=== PATIENT | female | born 1990 | race Caucasian/White ===

== ENCOUNTER 2017-11-22 23:50 | Observation (INO) | payer SELFPAY ==
[2017-11-23 01:00] LABS: CHLORIDE,CL 99 mmol/L (98-107); SODIUM,NA 134 mmol/L (136-145)
[2017-11-23] MEDS ORDERED: Sodium Chloride 0.9% 1,000 ML IV ONE ×2 (01:00→02:03)
[2017-11-23] MEDS ORDERED: Ketorolac 30 MG/ML SDV IVPUSH ONE (01:00)
--- NOTE | 2017-11-23 01:14 | EDM.PDOC ---
ED HPI GENERAL MEDICAL PROBLEM - General Chief Complaint: Flank Pain Stated Complaint: POSSIBLE KIDNEY INFECTION Time Seen by Provider: 11/23/17 00:00 Source of Information: Reports: Patient History Limitations: Reports: No Limitations - History of Present Illness INITIAL COMMENTS - FREE TEXT/NARRATIVE: HISTORY AND PHYSICAL: History of present illness: 27-year-old female presenting emergency department chief complaint of fever, chills, right flank pain 4 days with past medical history of pyelonephritis. Patient states that roughly 4 days ago she began having some generalized body aches. This is progressed to the point where 2 days ago she began to feel more feverish and have some mild right flank pain. States that she did have a kidney infection approximately 2 months ago the wire hospitalization and IV antibiotics. This was all in [place] where she is initially from. She just moved to [place] approximately 2 days ago. Patient reports no associated nausea, vomiting, diarrhea, abdominal pain, dysuria, or hematuria. States that she's had some mild right flank pain as mentioned above she had similar to her last acute kidney infection. She denies any history of kidney stones. Patient has a primary care provider in [place] and has never seen a urologist but states she's had multiple kidney infections in the past. On initial exam patient is nontoxic-appearing. She does have mild right CVA tenderness as well as suprapubic tenderness. Review of systems: As per history of present illness and below otherwise all systems reviewed and negative. Past medical history: As per history of present illness and as reviewed below otherwise noncontributory. Surgical history: As per history of present illness and as reviewed below otherwise noncontributory. Social history: No reported history of drug or alcohol abuse. Family history: As per history of present illness and as reviewed below otherwise noncontributory. Physical exam: HEENT: Atraumatic, normocephalic, pupils reactive, negative for conjunctival pallor or scleral icterus, mucous membranes moist, throat clear, neck supple, nontender, trachea midline. Lungs: Clear to auscultation, breath sounds equal bilaterally, chest nontender. Heart: S1S2, regular, negative for clicks, rubs, or JVD. Abdomen: Soft, nondistended, Mild suprapubic tenderness. Negative for masses or hepatosplenomegaly. Right costovertebral tenderness. Pelvis: Stable nontender. Genitourinary: Deferred. Rectal: Deferred. Extremities: Atraumatic, negative for cords or calf pain. Neurovascular unremarkable. Neuro: Awake, alert, oriented. Cranial nerves II through XII unremarkable. Cerebellum unremarkable. Motor and sensory unremarkable throughout. Exam nonfocal. Diagnostics: CBC, CMP, UA/UC, blood culturex2 Therapeutics: 1 L normal saline 1, ertapenem 1 g IV 1, 30 mg Toradol IV 1 Impression: Acute cystitis Suspect pyelonephritis Plan: CBC, CMP were unremarkable. Patient did have positive UA for urinary tract infection and secondary to symptoms most likely acute pyelonephritis. Secondary to her recent hospitalization less than 2 months ago I did start her on ertapenem due to her increased risk of multiple drug resistant bacteria. In addition the patient did have an episode of hypotension with systolic and 89. This was relieved with IV fluid hydration. Secondary all above I did call hospitalist Dr. Singleton who accepted patient for admission observation for pyelonephritis. Blood cultures as well as urine culture were taken before abx. Definitive disposition and diagnosis as appropriate pending reevaluation and review of above. right flank Pain Score (Numeric/FACES): 10 - Related Data Allergies Allergy/AdvReac Type Severity Reaction Status Date / Time ciprofloxacin Allergy Hives Verified 11/23/17 00:08 nitrofurantoin Allergy Hives Verified 11/23/17 00:08 [From Macrobid] sulfamethoxazole Allergy Hives Verified 11/23/17 00:08 [From Bactrim] trimethoprim [From Bactrim] Allergy Hives Verified 11/23/17 00:08 Home Meds: Home Meds . [No Known Home Meds] 11/22/17 [History] Past Medical History Genitourinary History: Reports: Other (See Below) Other Genitourinary History: chronic kidney infection Social & Family History - Family History Family Medical History: Noncontributory - Tobacco Use Smoking Status *Q: Never Smoker - Recreational Drug Use Recreational Drug Use: No ED ROS GENERAL - Review of Systems Review Of Systems: ROS reveals no pertinent complaints other than HPI. ED EXAM, GENERAL - Physical Exam Exam: See Below Course - Vital Signs Last Recorded V/S: Last Vital Signs Temp 98.6 F 11/23/17 01:41 Pulse 97 11/23/17 01:41 Resp 18 11/23/17 01:41 BP 109/70 11/23/17 01:41 Pulse Ox 100 11/23/17 01:41 - Orders/Labs/Meds Orders: Active Orders 24 hr Category Date Time Status Admission Status [Patient Status] [ADT] Stat ADT 11/23/17 01:53 Ordered CULTURE BLOOD [BC] Stat Lab 11/23/17 01:46 Ordered CULTURE BLOOD [BC] Stat Lab 11/23/17 01:47 Ordered CULTURE BLOOD [BC] Stat Lab 11/23/17 01:47 Ordered CULTURE URINE [RM] Stat Lab 11/23/17 00:00 Ordered HCG QUALITATIVE,URINE [URCHEM] Stat Lab 11/23/17 00:00 Ordered UA W/MICROSCOPIC [URIN] Stat Lab 11/23/17 00:00 Ordered Ertapenem [INVanz] 1 gm Med 11/23/17 01:41 Ordered Sodium Chloride 0.9% [Normal Saline] 50 ml IV ONETIME Sodium Chloride 0.9% [Normal Saline] 1,000 ml Med 11/23/17 01:00 Active IV STAT Blood Culture x2 Reflex Set [OM.PC] Stat Oth 11/23/17 01:47 Ordered Medication Orders Sodium Chloride (Normal Saline) 1,000 mls @ 999 mls/hr IV STAT ONE Stop: 11/23/17 02:00 Last Admin: 11/23/17 01:09 Dose: 999 mls/hr Ertapenem 1 gm/ Sodium (Chloride) 50 mls @ 100 mls/hr IV ONETIME ONE Stop: 11/23/17 02:10 Labs: Laboratory Tests 11/23/17 11/23/17 11/23/17 Range/Units 00:00 00:00 00:03 WBC (4.0-11.0) K/uL RBC (4.30-5.90) M/uL Hgb (12.0-16.0) g/dL Hct (36.0-46.0) % MCV (80.0-98.0) fL MCH (27.0-32.0) pg MCHC (31.0-37.0) g/dL RDW Std Deviation (28.0-62.0) fl RDW Coeff of Vaibhav (11.0-15.0) % Plt Count (150-400) K/uL MPV (7.40-12.00) fL Neut % (Auto) (48.0-80.0) % Lymph % (Auto) (16.0-40.0) % [place] % (Auto) (0.0-15.0) % Eos % (Auto) (0.0-7.0) % Baso % (Auto) (0.0-1.5) % Neut # (Auto) (1.4-5.7) K/uL Lymph # (Auto) (0.6-2.4) K/uL [place] # (Auto) (0.0-0.8) K/uL Eos # (Auto) (0.0-0.7) K/uL Baso # (Auto) (0.0-0.1) K/uL Nucleated RBC % /100WBC Nucleated RBCs # K/uL Sodium 134 L (136-145) mmol/L Potassium 3.7 (3.5-5.1) mmol/L Chloride 99 (98-107) mmol/L Carbon Dioxide 26.2 (21.0-32.0) mmol/L BUN 10 (7.0-18.0) mg/dL Creatinine 0.9 (0.6-1.0) mg/dL Est Cr Clr Drug Dosing 74.92 mL/min Estimated GFR (MDRD) > 60.0 ml/min Glucose 132 H (74-106) mg/dL Calcium 8.8 (8.5-10.1) mg/dL Total Bilirubin 0.8 (0.2-1.0) mg/dL AST 40 H (15-37) IU/L ALT 42 (14-63) IU/L Alkaline Phosphatase 83 (46-116) U/L Total Protein 7.4 (6.4-8.2) g/dL Albumin 3.2 L (3.4-5.0) g/dL Globulin 4.2 H (2.0-3.5) g/dL Albumin/Globulin Ratio 0.8 L (1.3-2.8) Urine Color YELLOW Urine Appearance SLT CLOUDY Urine pH 6.0 (5.0-8.0) Ur Specific [place] 1.020 (1.001-1.035) Urine Protein 30 (NEGATIVE) mg/dL Urine Glucose (UA) NEGATIVE (NEGATIVE) mg/dL Urine Ketones NEGATIVE (NEGATIVE) mg/dL Urine Occult Blood SMALL H (NEGATIVE) Urine Nitrite POSITIVE H (NEGATIVE) Urine Bilirubin NEGATIVE (NEGATIVE) Urine Urobilinogen 0.2 (<2.0) EU/dL Ur Leukocyte Esterase MODERATE (NEGATIVE) Urine RBC 1-2 (0-2/HPF) Urine WBC 12-17 (0-5/HPF) Ur Epithelial Cells OCCASIONAL (NONE-FEW) Urine Bacteria 3+ H (NEGATIVE) Urine Mucus LIGHT (NONE-MOD) Urine HCG, Qual NEGATIVE (NEGATIVE) 11/23/17 Range/Units 00:30 WBC 8.17 (4.0-11.0) K/uL RBC 4.17 L (4.30-5.90) M/uL Hgb 14.1 (12.0-16.0) g/dL Hct 40.2 (36.0-46.0) % MCV 96.4 (80.0-98.0) fL MCH 33.8 H (27.0-32.0) pg MCHC 35.1 (31.0-37.0) g/dL RDW Std Deviation 43.8 (28.0-62.0) fl RDW Coeff of Vaibhav 13 (11.0-15.0) % Plt Count 185 (150-400) K/uL MPV 9.10 (7.40-12.00) fL Neut % (Auto) 66.6 (48.0-80.0) % Lymph % (Auto) 20.1 (16.0-40.0) % [place] % (Auto) 13.2 (0.0-15.0) % Eos % (Auto) 0.0 (0.0-7.0) % Baso % (Auto) 0.1 (0.0-1.5) % Neut # (Auto) 5.4 (1.4-5.7) K/uL Lymph # (Auto) 1.6 (0.6-2.4) K/uL [place] # (Auto) 1.1 H (0.0-0.8) K/uL Eos # (Auto) 0.0 (0.0-0.7) K/uL Baso # (Auto) 0.0 (0.0-0.1) K/uL Nucleated RBC % 0.0 /100WBC Nucleated RBCs # 0 K/uL Sodium (136-145) mmol/L Potassium (3.5-5.1) mmol/L Chloride (98-107) mmol/L Carbon Dioxide (21.0-32.0) mmol/L BUN (7.0-18.0) mg/dL Creatinine (0.6-1.0) mg/dL Est Cr Clr Drug Dosing mL/min Estimated GFR (MDRD) ml/min Glucose (74-106) mg/dL Calcium (8.5-10.1) mg/dL Total Bilirubin (0.2-1.0) mg/dL AST (15-37) IU/L ALT (14-63) IU/L Alkaline Phosphatase (46-116) U/L Total Protein (6.4-8.2) g/dL Albumin (3.4-5.0) g/dL Globulin (2.0-3.5) g/dL Albumin/Globulin Ratio (1.3-2.8) Urine Color Urine Appearance Urine pH (5.0-8.0) Ur Specific [place] (1.001-1.035) Urine Protein (NEGATIVE) mg/dL Urine Glucose (UA) (NEGATIVE) mg/dL Urine Ketones (NEGATIVE) mg/dL Urine Occult Blood (NEGATIVE) Urine Nitrite (NEGATIVE) Urine Bilirubin (NEGATIVE) Urine Urobilinogen (<2.0) EU/dL Ur Leukocyte Esterase (NEGATIVE) Urine RBC (0-2/HPF) Urine WBC (0-5/HPF) Ur Epithelial Cells (NONE-FEW) Urine Bacteria (NEGATIVE) Urine Mucus (NONE-MOD) Urine HCG, Qual (NEGATIVE) Meds: Medications Generic Name Dose Route Start Last Admin Trade Name Juana PRN Reason Stop Dose Admin Sodium Chloride 1,000 mls @ 999 mls/hr 11/23/17 01:00 11/23/17 01:09 Normal Saline IV 11/23/17 02:00 999 mls/hr STAT ONE Administration Ertapenem 1 gm/ Sodium 50 mls @ 100 mls/hr 11/23/17 01:41 Chloride IV 11/23/17 02:10 ONETIME ONE Discontinued Medications Generic Name Dose Route Start Last Admin Trade Name Juana PRN Reason Stop Dose Admin Ketorolac Tromethamine 30 mg 11/23/17 01:00 11/23/17 01:09 Toradol IVPUSH 11/23/17 01:01 30 mg ONETIME ONE Administration Morphine Sulfate 2 mg 11/23/17 01:26 11/23/17 01:52 Morphine IVPUSH 11/23/17 01:27 Not Given ONETIME ONE Departure - Departure Time of Disposition: 01:57 Disposition: Admitted As Inpatient 67 Condition: Fair Clinical Impression: Pyelonephritis, UTI, Urinary tract infectious disease - Discharge Information Referrals: PCP,None [Primary Care Provider] - Forms: ED Department Discharge - My Orders Last 24 Hours: My Active Orders 11/23/17 00:00 CULTURE URINE [RM] Stat HCG QUALITATIVE,URINE [URCHEM] Stat UA W/MICROSCOPIC [URIN] Stat 11/23/17 01:00 Sodium Chloride 0.9% [Normal Saline] 1,000 ml IV STAT 11/23/17 01:41 Ertapenem [INVanz] 1 gm Sodium Chloride 0.9% [Normal Saline] 50 ml IV ONETIME 11/23/17 01:46 CULTURE BLOOD [BC] Stat 11/23/17 01:47 CULTURE BLOOD [BC] Stat CULTURE BLOOD [BC] Stat Blood Culture x2 Reflex Set [OM.PC] Stat 11/23/17 01:53 Admission Status [Patient Status] [ADT] Stat - Assessment/Plan Last 24 Hours: My Active Orders 11/23/17 00:00 CULTURE URINE [RM] Stat HCG QUALITATIVE,URINE [URCHEM] Stat UA W/MICROSCOPIC [URIN] Stat 11/23/17 01:00 Sodium Chloride 0.9% [Normal Saline] 1,000 ml IV STAT 11/23/17 01:41 Ertapenem [INVanz] 1 gm Sodium Chloride 0.9% [Normal Saline] 50 ml IV ONETIME 11/23/17 01:46 CULTURE BLOOD [BC] Stat 11/23/17 01:47 CULTURE BLOOD [BC] Stat CULTURE BLOOD [BC] Stat Blood Culture x2 Reflex Set [OM.PC] Stat 11/23/17 01:53 Admission Status [Patient Status] [ADT] Stat
[2017-11-23] MEDS ORDERED: cefTRIAXone 1 GM in Premix Bag 1 BAG IV ONE (01:31)
[2017-11-23] MEDS: Morphine 2 MG/ML Syringe IVPUSH ONE ×2 (01:32→01:52)
[2017-11-23] MEDS ORDERED: Ertapenem 1 GM in Sodium Chloride 0.9% 50 ML IV ONE (01:41)
[2017-11-23] MEDS ORDERED: Enoxaparin 40 MG/0.4 ML Syringe SUBCUT SCH (03:00)
[2017-11-23] MEDS: Sodium Chloride 0.9% 1,000 ML IV SCH ×3 (03:00→20:02)
[2017-11-23] MEDS: Acetaminophen/oxyCODONE 325-5 MG Tab PO PRN ×5 (03:25→22:29)
[2017-11-23 06:35] LABS: CHLORIDE,CL 105 mmol/L (98-107); SODIUM,NA 136 mmol/L (136-145)
[2017-11-23] MEDS: Acetaminophen 325 MG Tab PO PRN (12:17)
[2017-11-23] MEDS ORDERED: LORazepam 2 MG/ML SDV IVPUSH PRN (13:13)
[2017-11-23] MEDS ORDERED: Magnesium Sulfate/Water 2 GM in Premix Bag 1 BAG IV ONE (13:17)
[2017-11-23] MEDS: Folic Acid/Vitamin B Complex With C Cap PO SCH (14:51)
--- NOTE | 2017-11-23 15:36 | US ---
EXAMINATION: Renal ultrasound HISTORY: Pyelonephritis COMPARISON: None TECHNIQUE: Grayscale and color Doppler imaging obtained of the kidneys and bladder. FINDINGS: The right kidney measures at least 9.9 cm and the left kidney measures at least 10.9 cm brittany e-to-pole without evidence of hydronephrosis. No renal mass or perinephric fluid collection. Normal c olor Doppler flow bilaterally. The adjacent liver appears mildly echogenic. The urinary bladder is no rmal with a minimal post void residual. IMPRESSION: 1. Unremarkable renal ultrasound. 2. Probable fatty infiltration of the liver.
--- NOTE | 2017-11-23 20:53 | PCM.HP ---
H&P History of Present Illness - General Date of Service: 11/23/17 Admit Problem/Dx: Admission Diagnosis/Problem Admission Diagnosis/Problem Pyelonephritis Source of Information: Patient - History of Present Illness Initial Comments - Free Text/Narative: Patient 27 years old female presented to hospital because of fever to 101.5F body aches , cold sweats ,increase in urinary frequency and no dysuria .Her symptoms started 2 days ago and patient says she used to go to restroom every hour .She has history of frequent urinary tract infection since age 13. She states she had pyelonephroitis 6 times since age 19. Patient drinks alcohol heavily for the past 1 1/2 year ., 1 L of Vodka a day and her last drink was on Sunday, 2 days ago. She states she never stopped drinking alcohol she also is using my methamphetamines.Has pain in the right flank. Symptom Onset Date: 11/21/17 Duration of Symptoms: Reports: Day(s): Location: Reports: Abdomen Quality: Reports: Pressure right flank Pain Score (Numeric/FACES): 2 - Related Data Allergies/Adverse Reactions: Allergies Allergy/AdvReac Type Severity Reaction Status Date / Time ciprofloxacin Allergy Hives Verified 11/23/17 00:08 nitrofurantoin Allergy Hives Verified 11/23/17 00:08 [From Macrobid] sulfamethoxazole Allergy Hives Verified 11/23/17 00:08 [From Bactrim] trimethoprim [From Bactrim] Allergy Hives Verified 11/23/17 00:08 Home Medications: Home Meds . [No Known Home Meds] 11/22/17 [History] Past Medical History Genitourinary History: Reports: Other (See Below) Other Genitourinary History: frequent UTi kidney infection Social & Family History - Family History Family Medical History: Noncontributory - Tobacco Use Smoking Status *Q: Never Smoker - Caffeine Use Caffeine Use: Reports: Coffee, Soda - Alcohol Use Days Per Week of Alcohol Use: 7 Number of Drinks Per Day: 4 Total Drinks Per Week: 28 Date of Last Drink: 11/19/17 Time of Last Drink: 21:00 - Recreational Drug Use Recreational Drug Use: No H&P Review of Systems - Review of Systems: Review Of Systems: See Below General: Reports: Fever, Chills, Night Sweats HEENT: Reports: No Symptoms Pulmonary: Reports: No Symptoms Cardiovascular: Reports: No Symptoms Gastrointestinal: Reports: No Symptoms Genitourinary: Reports: Frequency, Urgency, Flank Pain. Denies: Dysuria, Burning, Pain Musculoskeletal: Reports: No Symptoms Skin: Reports: No Symptoms Psychiatric: Reports: No Symptoms Neurological: Reports: Tremors Hematologic/Lymphatic: Reports: No Symptoms Immunologic: Reports: No Symptoms Exam - Exam Exam: See Below - Vital Signs Vital Signs: Last Vital Signs Temp 96.4 F 11/23/17 16:00 Pulse 90 11/23/17 16:00 Resp 16 11/23/17 16:00 BP 113/62 11/23/17 16:00 Pulse Ox 96 11/23/17 16:00 Weight: 163 lb - Exam Quality Assessment: No: Supplemental Oxygen General: Alert, Oriented, Cooperative HEENT: Conjunctiva Clear, EACs Clear, EOMI, Hearing Intact Neck: Supple, Trachea Midline Lungs: Clear to Auscultation, Normal Respiratory Effort Cardiovascular: Regular Rate, Regular Rhythm, Normal S1, Normal S2 GI/Abdominal Exam: Normal Bowel Sounds, No Organomegaly, No Distention, No Abnormal Bruit, Tender (epigastru) Back Exam: CVA Tenderness (R) Extremities: Normal Inspection, No Pedal Edema Skin: Warm, Dry Neurological: Cranial Nerves Intact Neuro Extensive - Mental Status: Alert, Oriented x3 Psychiatric: Alert, Normal Affect, Normal Mood - Patient Data Lab Results Last 24 hrs: Laboratory Results - last 24 hr 11/23/17 11/23/17 11/23/17 Range/Units 00:00 00:00 00:03 WBC (4.0-11.0) K/uL RBC (4.30-5.90) M/uL Hgb (12.0-16.0) g/dL Hct (36.0-46.0) % MCV (80.0-98.0) fL MCH (27.0-32.0) pg MCHC (31.0-37.0) g/dL RDW Std Deviation (28.0-62.0) fl RDW Coeff of Vaibhav (11.0-15.0) % Plt Count (150-400) K/uL MPV (7.40-12.00) fL Neut % (Auto) (48.0-80.0) % Lymph % (Auto) (16.0-40.0) % Kings % (Auto) (0.0-15.0) % Eos % (Auto) (0.0-7.0) % Baso % (Auto) (0.0-1.5) % Neut # (Auto) (1.4-5.7) K/uL Lymph # (Auto) (0.6-2.4) K/uL Kings # (Auto) (0.0-0.8) K/uL Eos # (Auto) (0.0-0.7) K/uL Baso # (Auto) (0.0-0.1) K/uL Nucleated RBC % /100WBC Nucleated RBCs # K/uL Lactate (0.20-2.00) mmol/L Sodium 134 L (136-145) mmol/L Potassium 3.7 (3.5-5.1) mmol/L Chloride 99 (98-107) mmol/L Carbon Dioxide 26.2 (21.0-32.0) mmol/L BUN 10 (7.0-18.0) mg/dL Creatinine 0.9 (0.6-1.0) mg/dL Est Cr Clr Drug Dosing 74.92 mL/min Estimated GFR (MDRD) > 60.0 ml/min Glucose 132 H (74-106) mg/dL Calcium 8.8 (8.5-10.1) mg/dL Total Bilirubin 0.8 (0.2-1.0) mg/dL AST 40 H (15-37) IU/L ALT 42 (14-63) IU/L Alkaline Phosphatase 83 (46-116) U/L Total Protein 7.4 (6.4-8.2) g/dL Albumin 3.2 L (3.4-5.0) g/dL Globulin 4.2 H (2.0-3.5) g/dL Albumin/Globulin Ratio 0.8 L (1.3-2.8) Urine Color YELLOW Urine Appearance SLT CLOUDY Urine pH 6.0 (5.0-8.0) Ur Specific [place] 1.020 (1.001-1.035) Urine Protein 30 (NEGATIVE) mg/dL Urine Glucose (UA) NEGATIVE (NEGATIVE) mg/dL Urine Ketones NEGATIVE (NEGATIVE) mg/dL Urine Occult Blood SMALL H (NEGATIVE) Urine Nitrite POSITIVE H (NEGATIVE) Urine Bilirubin NEGATIVE (NEGATIVE) Urine Urobilinogen 0.2 (<2.0) EU/dL Ur Leukocyte Esterase MODERATE (NEGATIVE) Urine RBC 1-2 (0-2/HPF) Urine WBC 12-17 (0-5/HPF) Ur Epithelial Cells OCCASIONAL (NONE-FEW) Urine Bacteria 3+ H (NEGATIVE) Urine Mucus LIGHT (NONE-MOD) Urine HCG, Qual NEGATIVE (NEGATIVE) 11/23/17 11/23/17 11/23/17 Range/Units 00:30 06:05 06:05 WBC 8.17 5.50 (4.0-11.0) K/uL RBC 4.17 L 3.86 L (4.30-5.90) M/uL Hgb 14.1 13.1 (12.0-16.0) g/dL Hct 40.2 37.9 (36.0-46.0) % MCV 96.4 98.2 H (80.0-98.0) fL MCH 33.8 H 33.9 H (27.0-32.0) pg MCHC 35.1 34.6 (31.0-37.0) g/dL RDW Std Deviation 43.8 45.3 (28.0-62.0) fl RDW Coeff of Vaibhav 13 13 (11.0-15.0) % Plt Count 185 151 (150-400) K/uL MPV 9.10 9.20 (7.40-12.00) fL Neut % (Auto) 66.6 66.8 (48.0-80.0) % Lymph % (Auto) 20.1 29.5 (16.0-40.0) % Kings % (Auto) 13.2 3.3 (0.0-15.0) % Eos % (Auto) 0.0 0.2 (0.0-7.0) % Baso % (Auto) 0.1 0.2 (0.0-1.5) % Neut # (Auto) 5.4 3.7 (1.4-5.7) K/uL Lymph # (Auto) 1.6 1.6 (0.6-2.4) K/uL Kings # (Auto) 1.1 H 0.2 (0.0-0.8) K/uL Eos # (Auto) 0.0 0.0 (0.0-0.7) K/uL Baso # (Auto) 0.0 0.0 (0.0-0.1) K/uL Nucleated RBC % 0.0 0.0 /100WBC Nucleated RBCs # 0 0 K/uL Lactate 2.1 H (0.20-2.00) mmol/L Sodium (136-145) mmol/L Potassium (3.5-5.1) mmol/L Chloride (98-107) mmol/L Carbon Dioxide (21.0-32.0) mmol/L BUN (7.0-18.0) mg/dL Creatinine (0.6-1.0) mg/dL Est Cr Clr Drug Dosing mL/min Estimated GFR (MDRD) ml/min Glucose (74-106) mg/dL Calcium (8.5-10.1) mg/dL Total Bilirubin (0.2-1.0) mg/dL AST (15-37) IU/L ALT (14-63) IU/L Alkaline Phosphatase (46-116) U/L Total Protein (6.4-8.2) g/dL Albumin (3.4-5.0) g/dL Globulin (2.0-3.5) g/dL Albumin/Globulin Ratio (1.3-2.8) Urine Color Urine Appearance Urine pH (5.0-8.0) Ur Specific [place] (1.001-1.035) Urine Protein (NEGATIVE) mg/dL Urine Glucose (UA) (NEGATIVE) mg/dL Urine Ketones (NEGATIVE) mg/dL Urine Occult Blood (NEGATIVE) Urine Nitrite (NEGATIVE) Urine Bilirubin (NEGATIVE) Urine Urobilinogen (<2.0) EU/dL Ur Leukocyte Esterase (NEGATIVE) Urine RBC (0-2/HPF) Urine WBC (0-5/HPF) Ur Epithelial Cells (NONE-FEW) Urine Bacteria (NEGATIVE) Urine Mucus (NONE-MOD) Urine HCG, Qual (NEGATIVE) 11/23/17 11/23/17 Range/Units 06:05 13:12 WBC (4.0-11.0) K/uL RBC (4.30-5.90) M/uL Hgb (12.0-16.0) g/dL Hct (36.0-46.0) % MCV (80.0-98.0) fL MCH (27.0-32.0) pg MCHC (31.0-37.0) g/dL RDW Std Deviation (28.0-62.0) fl RDW Coeff of Vaibhav (11.0-15.0) % Plt Count (150-400) K/uL MPV (7.40-12.00) fL Neut % (Auto) (48.0-80.0) % Lymph % (Auto) (16.0-40.0) % Kings % (Auto) (0.0-15.0) % Eos % (Auto) (0.0-7.0) % Baso % (Auto) (0.0-1.5) % Neut # (Auto) (1.4-5.7) K/uL Lymph # (Auto) (0.6-2.4) K/uL Kings # (Auto) (0.0-0.8) K/uL Eos # (Auto) (0.0-0.7) K/uL Baso # (Auto) (0.0-0.1) K/uL Nucleated RBC % /100WBC Nucleated RBCs # K/uL Lactate 0.8 (0.20-2.00) mmol/L Sodium 136 (136-145) mmol/L Potassium 4.3 (3.5-5.1) mmol/L Chloride 105 (98-107) mmol/L Carbon Dioxide 22.8 (21.0-32.0) mmol/L BUN 10 (7.0-18.0) mg/dL Creatinine 0.9 (0.6-1.0) mg/dL Est Cr Clr Drug Dosing 74.92 mL/min Estimated GFR (MDRD) > 60.0 ml/min Glucose 88 (74-106) mg/dL Calcium 7.8 L (8.5-10.1) mg/dL Total Bilirubin (0.2-1.0) mg/dL AST (15-37) IU/L ALT (14-63) IU/L Alkaline Phosphatase (46-116) U/L Total Protein (6.4-8.2) g/dL Albumin (3.4-5.0) g/dL Globulin (2.0-3.5) g/dL Albumin/Globulin Ratio (1.3-2.8) Urine Color Urine Appearance Urine pH (5.0-8.0) Ur Specific [place] (1.001-1.035) Urine Protein (NEGATIVE) mg/dL Urine Glucose (UA) (NEGATIVE) mg/dL Urine Ketones (NEGATIVE) mg/dL Urine Occult Blood (NEGATIVE) Urine Nitrite (NEGATIVE) Urine Bilirubin (NEGATIVE) Urine Urobilinogen (<2.0) EU/dL Ur Leukocyte Esterase (NEGATIVE) Urine RBC (0-2/HPF) Urine WBC (0-5/HPF) Ur Epithelial Cells (NONE-FEW) Urine Bacteria (NEGATIVE) Urine Mucus (NONE-MOD) Urine HCG, Qual (NEGATIVE) Result Diagrams: 11/23/17 06:05 11/23/17 06:05 Jeremie Results Last 24 hrs: Microbiology 11/23/17 02:20 Anaerobic Blood Culture - Final Blood - Venous - Problem List (1) Alcohol withdrawal SNOMED Code(s): 789673853 ICD Code: F10.239 - ALCOHOL DEPENDENCE WITH WITHDRAWAL, UNSPECIFIED Status : Acute Current Visit: Yes (2) Pyelonephritis SNOMED Code(s): 98082123 ICD Code: N12 - TUBULO-INTERSTITIAL NEPHRITIS, NOT SPCF ACUTE OR CHRONIC Status: Acute Current Visit: Yes (3) History of frequent urinary tract infections SNOMED Code(s): 4149118357391 ICD Code: Z87.440 - PERSONAL HISTORY OF URINARY (TRACT) INFECTIONS Status: Acute Current Visit: Yes (4) Alcohol abuse SNOMED Code(s): 54221388 ICD Code: F10.10 - ALCOHOL ABUSE, UNCOMPLICATED Status: Acute Current Visit: Yes (5) Epigastric abdominal tenderness SNOMED Code(s): 898608513 ICD Code: R10.816 - EPIGASTRIC ABDOMINAL TENDERNESS Status: Acute Current Visit: Yes (6) Methamphetamine abuse SNOMED Code(s): 618170749 ICD Code: F15.10 - OTHER STIMULANT ABUSE, UNCOMPLICATED Status: Acute Current Visit: Yes Problem List Initiated/Reviewed/Updated: Yes Orders Last 24hrs: Active Orders 24 hr Category Date Time Status Admission Status [Patient Status] [ADT] Stat ADT 11/23/17 01:53 Active Telemetry Monitoring [Cardiac Monitoring] [RC] Q8H Care 11/23/17 13:11 Active Vital Signs [RC] Q4H Care 11/23/17 04:00 Active Regular Diet [DIET] Diet 11/23/17 Breakfast Active BMP [BASIC METABOLIC PANEL,BMP] [CHEM] DAILY Lab 11/24/17 05:00 Ordered BMP [BASIC METABOLIC PANEL,BMP] [CHEM] DAILY Lab 11/25/17 05:00 Ordered BMP [BASIC METABOLIC PANEL,BMP] [CHEM] DAILY Lab 11/26/17 05:00 Ordered BMP [BASIC METABOLIC PANEL,BMP] [CHEM] DAILY Lab 11/27/17 05:00 Ordered CBC WITH AUTO DIFF [HEME] DAILY Lab 11/24/17 05:00 Ordered CBC WITH AUTO DIFF [HEME] DAILY Lab 11/25/17 05:00 Ordered CBC WITH AUTO DIFF [HEME] DAILY Lab 11/26/17 05:00 Ordered CBC WITH AUTO DIFF [HEME] DAILY Lab 11/27/17 05:00 Ordered CULTURE BLOOD [BC] Stat Lab 11/23/17 01:47 Ordered CULTURE BLOOD [BC] Stat Lab 11/23/17 02:13 Received CULTURE BLOOD [BC] Stat Lab 11/23/17 02:20 Results CULTURE URINE [RM] Stat Lab 11/23/17 00:00 Ordered HCG QUALITATIVE,URINE [URCHEM] Stat Lab 11/23/17 00:00 Ordered UA W/MICROSCOPIC [URIN] Stat Lab 11/23/17 00:00 Ordered Acetaminophen [Tylenol] Med 11/23/17 02:56 Active 650 mg PO Q4H PRN Acetaminophen/oxyCODONE [Percocet 325-5 MG] Med 11/23/17 02:56 Active 1 tab PO Q4H PRN Enoxaparin [Lovenox] Med 11/23/17 03:00 Active 40 mg SUBCUT Q24H Ertapenem [INVanz] 1 gm Med 11/24/17 01:30 Active Sodium Chloride 0.9% [Normal Saline] 50 ml IV Q24H Folic Acid/Vitamin B Comp W-C [Renal Caps Softgel] Med 11/23/17 13:30 Active 1 cap PO DAILY LORazepam [Ativan] Med 11/23/17 13:13 Active See Protocol IVPUSH Q4H PRN Sodium Chloride 0.9% [Normal Saline] 1,000 ml Med 11/23/17 03:45 Active IV ASDIRECTED Thiamine [Vitamin B-1] Med 11/23/17 21:00 Active 100 mg PO BEDTIME Blood Culture x2 Reflex Set [OM.PC] Stat Oth 11/23/17 01:47 Ordered Code Status [Resuscitation Status] Routine Resus Stat 11/23/17 17:13 Ordered Medication Orders Acetaminophen (Tylenol) 650 mg PO Q4H PRN PRN Reason: Pain/Fever Last Admin: 11/23/17 12:17 Dose: 650 mg Enoxaparin Sodium (Lovenox) 40 mg SUBCUT Q24H [facility] Last Admin: 11/23/17 03:27 Dose: 40 mg Sodium Chloride (Normal Saline) 1,000 mls @ 150 mls/hr IV ASDIRECTED [facility] Last Admin: 11/23/17 20:02 Dose: 150 mls/hr Infusion: 11/23/17 17:02 Dose: 150 mls/hr Admin: 11/23/17 10:21 Dose: 150 mls/hr Infusion: 11/23/17 09:41 Dose: 150 mls/hr Admin: 11/23/17 03:00 Dose: 150 mls/hr Ertapenem 1 gm/ Sodium (Chloride) 50 mls @ 100 mls/hr IV Q24H [facility] Lorazepam (Ativan) 0 mg IVPUSH Q4H PRN; Protocol PRN Reason: agitation, anxiety Multivit/Ca Carb/B Cmplx/FA/Prenat (Renal Caps Softgel) 1 cap PO DAILY [facility] Last Admin: 11/23/17 14:51 Dose: 1 cap Oxycodone/Acetaminophen (Percocet 325-5 Mg) 1 tab PO Q4H PRN PRN Reason: Pain Last Admin: 11/23/17 16:31 Dose: 1 tab Admin: 11/23/17 12:17 Dose: 1 tab Admin: 11/23/17 07:42 Dose: 1 tab Admin: 11/23/17 03:25 Dose: 1 tab Thiamine HCl (Vitamin B-1) 100 mg PO BEDTIME [facility] Assessment/Plan Comment:: A/P 1.pyelonephritis: will admit patient to telemetry observation. Will continue patient with invanz 1 gram iv q 24 h, started in ER, iv fluids , renal sonogram f/up BC , urine culture 2.Alcohol withdrawal:CIWA protocol , telemetry, thyamine 100 mg po daily, Folic acid 1 mg po daily 3. Alcohol abuse - patient was advised to stop drinking alcohol 4. Epigastric tenderness: protonix 40 mg iv BID will order H pylori 5Methamphetamine abuse- patient says she wants to stop drinking alcohol and using drugs and want to be helped to get detox. dvt prof: scd
[2017-11-23] MEDS: Thiamine 100 MG Tab PO SCH (20:58)
[2017-11-24] MEDS: Acetaminophen 325 MG Tab PO PRN (01:04)
[2017-11-24] MEDS ORDERED: Ertapenem 1 GM in Sodium Chloride 0.9% 50 ML IV SCH (01:30)
[2017-11-24] MEDS ORDERED: Ertapenem 1 GM Vial IM SCH (01:30)
[2017-11-24] MEDS: Sodium Chloride 0.9% 1,000 ML IV SCH ×2 (02:29→09:15)
[2017-11-24] MEDS: Pantoprazole 40 MG Vial IVPUSH SCH ×2 (09:05→21:43)
[2017-11-24] MEDS: Acetaminophen/oxyCODONE 325-5 MG Tab PO PRN ×2 (09:06→14:39)
[2017-11-24] MEDS: Folic Acid/Vitamin B Complex With C Cap PO SCH (09:07)
[2017-11-24] MEDS ORDERED: Ciprofloxacin in D5W 400 MG in Premix Bag 1 BAG IV SCH ×2 (09:30)
[2017-11-24] MEDS ORDERED: methylPREDNISolone Sodium Succinate 125 MG/2 ML SDV IVPUSH ONE (13:09)
[2017-11-24] MEDS ORDERED: diphenhydrAMINE 50 MG/ML SDV IVPUSH ONE ×2 (13:19→16:09)
[2017-11-24] MEDS ORDERED: diphenhydrAMINE 50 MG/ML SDV ONE (13:21)
[2017-11-24] MEDS ORDERED: EPINEPHrine 1 MG/ML 30 ML MDV IVPUSH ONE (16:12)
[2017-11-24] MEDS ORDERED: EPINEPHrine 1 MG/ML SDV IM ONE (16:15)
[2017-11-24] MEDS ORDERED: Famotidine 20 MG/2 ML SDV IVPUSH ONE (16:15)
[2017-11-24] MEDS: diphenhydrAMINE 50 MG/ML SDV IVPUSH ONE ×2 (16:40→16:41)
[2017-11-24] MEDS ORDERED: LORazepam 2 MG/ML SDV IVPUSH ONE (16:53)
--- NOTE | 2017-11-24 16:58 | PCM.PN ---
- General Info Date of Service: 11/24/17 Admission Dx/Problem (Free Text): Admission Diagnosis/Problem Admission Diagnosis/Problem Pyelonephritis Subjective Update: Patient felt better in am . Ciwa score was 2 in am. The urine sensitivity showed she is sensitive to ciprofloxacin and Rocephin and has E coli inf. Kidney sonogram was nl, no abnormalities. - Review of Systems HEENT: Reports: No Symptoms Pulmonary: Reports: No Symptoms Cardiovascular: Reports: No Symptoms Gastrointestinal: Reports: No Symptoms Genitourinary: Reports: No Symptoms Musculoskeletal: Reports: No Symptoms Skin: Reports: Pruritis. Denies: Rash Neurological: Reports: No Symptoms Psychiatric: Reports: Agitation - Patient Data Vitals - Most Recent: Last Vital Signs Temp 97.8 F 11/24/17 13:00 Pulse 93 11/24/17 13:00 Resp 17 11/24/17 13:00 BP 101/58 L 11/24/17 13:00 Pulse Ox 94 L 11/24/17 13:00 Weight - Most Recent: 163 lb I&O - Last 24 Hours: Intake & Output 11/24/17 11/24/17 11/24/17 06:59 14:59 22:59 Intake Total 680 2200 Output Total 1900 1800 Balance -1220 400 Lab Results Last 24 Hours: Laboratory Results - last 24 hr 11/23/17 11/23/17 11/24/17 Range/Units 00:00 13:12 09:57 WBC 7.16 (4.0-11.0) K/uL RBC 3.84 L (4.30-5.90) M/uL Hgb 12.9 (12.0-16.0) g/dL Hct 37.9 (36.0-46.0) % MCV 98.7 H (80.0-98.0) fL MCH 33.6 H (27.0-32.0) pg MCHC 34.0 (31.0-37.0) g/dL RDW Std Deviation 41.9 (28.0-62.0) fl RDW Coeff of Vaibhav 12 (11.0-15.0) % Plt Count 149 L (150-400) K/uL MPV 9.20 (7.40-12.00) fL Add Manual Diff YES Neutrophils % (Manual) 60 (48.0-80.0) % Band Neutrophils % 5 % Lymphocytes % (Manual) 18 (16.0-40.0) % Monocytes % (Manual) 14 (0.0-15.0) % Eosinophils % (Manual) 2 (0.0-7.0) % Basophils % (Manual) 1 (0.0-1.5) % Absolute Seg Neuts 4.3 (1.4-5.7) Band Neutrophils # 0.4 Lymphocytes # (Manual) 1.3 (0.6-2.4) Monocytes # (Manual) 1.0 H (0.0-0.8) Eosinophils # (Manual) 0.1 (0.0-0.7) Basophils # (Manual) 0.1 (0.0-0.1) Urine Opiates Screen NEGATIVE (NEGATIVE) Ur Oxycodone Screen NEGATIVE (NEGATIVE) Urine Methadone Screen NEGATIVE (NEGATIVE) Ur Barbiturates Screen NEGATIVE (NEGATIVE) Ur Phencyclidine Scrn NEGATIVE (NEGATIVE) Ur Amphetamine Screen POSITIVE (NEGATIVE) U Methamphetamines Scrn POSITIVE (NEGATIVE) U Benzodiazepines Scrn NEGATIVE (NEGATIVE) U Cocaine Metab Screen NEGATIVE (NEGATIVE) U Marijuana (THC) Screen NEGATIVE (NEGATIVE) H. pylori IgG Antibody NEGATIVE (NEG) Jeremie Results Last 24 Hours: Microbiology 11/23/17 02:20 Aerobic Blood Culture - Preliminary Blood - Venous Anaerobic Blood Culture - Final 11/23/17 00:00 Urine Culture - Final Urine, Clean Catch Escherichia Coli 11/23/17 02:13 Aerobic Blood Culture - Preliminary Blood NO GROWTH AFTER 1 DAY Anaerobic Blood Culture - Preliminary NO GROWTH AFTER 1 DAY Med Orders - Current: Current Medications Acetaminophen (Tylenol) 650 mg PO Q4H PRN PRN Reason: Pain/Fever Last Admin: 11/24/17 01:04 Dose: 650 mg Diphenhydramine HCl (Benadryl) 50 mg IVPUSH Q4H [facility] Sodium Chloride (Normal Saline) 1,000 mls @ 150 mls/hr IV ASDIRECTED [facility] Last Admin: 11/24/17 09:15 Dose: 150 mls/hr Lorazepam (Ativan) 0 mg IVPUSH Q4H PRN; Protocol PRN Reason: agitation, anxiety Lorazepam (Ativan) 2 mg IVPUSH ONETIME ONE Stop: 11/24/17 16:54 Methylprednisolone Sodium Succinate (Solu-Medrol) 125 mg IVPUSH Q6H [facility] Multivit/Ca Carb/B Cmplx/FA/Prenat (Renal Caps Softgel) 1 cap PO DAILY [facility] Last Admin: 11/24/17 09:07 Dose: 1 cap Oxycodone/Acetaminophen (Percocet 325-5 Mg) 1 tab PO Q4H PRN PRN Reason: Pain Last Admin: 11/24/17 14:39 Dose: 1 tab Pantoprazole Sodium (Protonix Iv) 40 mg IVPUSH BID [facility] Last Admin: 11/24/17 09:05 Dose: 40 mg Thiamine HCl (Vitamin B-1) 100 mg PO BEDTIME [facility] Last Admin: 11/23/17 20:58 Dose: 100 mg Discontinued Medications Diphenhydramine HCl (Benadryl) 50 mg IVPUSH ONETIME ONE Stop: 11/24/17 13:20 Last Admin: 11/24/17 13:26 Dose: 50 mg Diphenhydramine HCl (Benadryl) Confirm Administered Dose 50 mg .ROUTE .STK-MED ONE Stop: 11/24/17 13:22 Last Admin: 11/24/17 13:27 Dose: Not Given Diphenhydramine HCl (Benadryl) 50 mg IVPUSH ONETIME ONE Stop: 11/24/17 16:10 Last Admin: 11/24/17 16:30 Dose: Not Given Diphenhydramine HCl (Benadryl) 50 mg IVPUSH ONETIME ONE Stop: 11/24/17 16:13 Last Admin: 11/24/17 16:41 Dose: 50 mg Enoxaparin Sodium (Lovenox) 40 mg SUBCUT Q24H [facility] Last Admin: 11/23/17 03:27 Dose: 40 mg Epinephrine HCl (Adrenalin) 1 mg IVPUSH NOW ONE Stop: 11/24/17 16:13 Epinephrine HCl (Adrenalin) 0.3 mg IM ONETIME ONE Stop: 11/24/17 16:16 Famotidine (Pepcid) 20 mg IVPUSH ONETIME ONE Stop: 11/24/17 16:16 Last Admin: 11/24/17 16:36 Dose: 20 mg Sodium Chloride (Normal Saline) 1,000 mls @ 999 mls/hr IV STAT ONE Stop: 11/23/17 02:00 Last Admin: 11/23/17 01:09 Dose: 999 mls/hr Ertapenem 1 gm/ Sodium (Chloride) 50 mls @ 100 mls/hr IV ONETIME ONE Stop: 11/23/17 02:10 Last Admin: 11/23/17 02:16 Dose: 100 mls/hr Sodium Chloride (Normal Saline) 1,000 mls @ 999 mls/hr IV .Bolus ONE Stop: 11/23/17 03:03 Last Admin: 11/23/17 02:17 Dose: 999 mls/hr Magnesium Sulfate 2 gm/ Premix 50 mls @ 50 mls/hr IV ONETIME ONE Stop: 11/23/17 14:16 Last Admin: 11/23/17 14:47 Dose: 50 mls/hr Ertapenem 1 gm/ Sodium (Chloride) 50 mls @ 100 mls/hr IV Q24H [facility] Last Admin: 11/24/17 01:06 Dose: 100 mls/hr Ciprofloxacin/Dextrose 400 mg/ (Premix) 200 mls @ 200 mls/hr IV Q12H [facility] Last Admin: 11/24/17 10:16 Dose: 200 mls/hr Ketorolac Tromethamine (Toradol) 30 mg IVPUSH ONETIME ONE Stop: 11/23/17 01:01 Last Admin: 11/23/17 01:09 Dose: 30 mg Methylprednisolone Sodium Succinate (Solu-Medrol) 125 mg IVPUSH ONETIME ONE Stop: 11/24/17 13:10 Last Admin: 11/24/17 13:26 Dose: 125 mg Morphine Sulfate (Morphine) 2 mg IVPUSH ONETIME ONE Stop: 11/23/17 01:27 Last Admin: 11/23/17 01:52 Dose: Not Given - Exam General: Alert, Oriented, Cooperative HEENT: Pupils Equal, Pupils Reactive, EOMI Neck: Supple, Trachea Midline, No JVD Lungs: Clear to Auscultation, Normal Respiratory Effort Cardiovascular: Regular Rate, Regular Rhythm GI/Abdominal Exam: Normal Bowel Sounds, Soft, Non-Tender, No Organomegaly, No Distention, No Abnormal Bruit Back Exam: Normal Inspection Extremities: Normal Inspection Skin: Warm, Dry, Intact Neurological: No New Focal Deficit Psy/Mental Status: Alert, Normal Affect - Problem List & Annotations (1) Alcohol withdrawal SNOMED Code(s): 406193244 Code(s): F10.239 - ALCOHOL DEPENDENCE WITH WITHDRAWAL, UNSPECIFIED Status: Acute Current Visit: Yes (2) Pyelonephritis SNOMED Code(s): 53940537 Code(s): N12 - TUBULO-INTERSTITIAL NEPHRITIS, NOT SPCF ACUTE OR CHRONIC Status: Acute Current Visit: Yes (3) History of frequent urinary tract infections SNOMED Code(s): 6887696863381 Code(s): Z87.440 - PERSONAL HISTORY OF URINARY (TRACT) INFECTIONS Status: Acute Current Visit: Yes (4) Alcohol abuse SNOMED Code(s): 63943343 Code(s): F10.10 - ALCOHOL ABUSE, UNCOMPLICATED Status: Acute Current Visit: Yes (5) Epigastric abdominal tenderness SNOMED Code(s): 617306996 Code(s): R10.816 - EPIGASTRIC ABDOMINAL TENDERNESS Status: Acute Current Visit: Yes (6) Methamphetamine abuse SNOMED Code(s): 353301177 Code(s): F15.10 - OTHER STIMULANT ABUSE, UNCOMPLICATED Status: Acute Current Visit: Yes - Problem List Review Problem List Initiated/Reviewed/Updated: Yes - My Orders Last 24 Hours: My Active Orders 11/23/17 17:13 Code Status [Resuscitation Status] Routine 11/23/17 21:00 Thiamine [Vitamin B-1] 100 mg PO BEDTIME 11/23/17 21:14 SCD [Sequential Compression Device] [OM.PC] Routine 11/24/17 09:00 Pantoprazole [ProTONIX IV] 40 mg IVPUSH BID 11/24/17 12:08 [employer] Discontinue [Cardiac Monitoring Discontinue] [RC] Click to Edit 11/24/17 16:53 LORazepam [Ativan] 2 mg IVPUSH ONETIME ONE 11/24/17 17:00 diphenhydrAMINE [Benadryl] 50 mg IVPUSH Q4H methylPREDNISolone Sod Succ [Solu-MEDROL] 125 mg IVPUSH Q6H 11/25/17 05:00 BMP [BASIC METABOLIC PANEL,BMP] [CHEM] DAILY CBC WITH AUTO DIFF [HEME] DAILY 11/26/17 05:00 BMP [BASIC METABOLIC PANEL,BMP] [CHEM] DAILY CBC WITH AUTO DIFF [HEME] DAILY 11/27/17 05:00 BMP [BASIC METABOLIC PANEL,BMP] [CHEM] DAILY CBC WITH AUTO DIFF [HEME] DAILY - Plan Plan:: A/P 1.pyelonephritis: will admit patient to telemetry observation. D/c invanz , started on Rocephine 1 gram iv Received a dose of ciprofloxacin iv and developed pruritus, no rash and received a dose of solumedrol iv and 1 dose of Benadryl and her pruritus subsided 3. Alcohol abuse - patient was advised to stop drinking alcohol thiamine 100 mg po daily, Folic acid 1 mg po daily 4. Epigastric tenderness: protonix 40 mg iv BID H pylori negative 5Methamphetamine abuse- patient says she wants to stop drinking alcohol and using drugs and want to be helped to get detox. dvt prof: scd
[2017-11-24] MEDS ORDERED: EPINEPHrine 1 MG/1 ML Amp IM ONE (17:15)
[2017-11-24] MEDS: methylPREDNISolone Sodium Succinate 125 MG/2 ML SDV IVPUSH SCH ×2 (18:18→23:32)
[2017-11-24] MEDS ORDERED: cefTRIAXone 1,000 MG in Sodium Chloride 0.9% 50 ML IV SCH (18:30)
[2017-11-24] MEDS: diphenhydrAMINE 50 MG/ML SDV IVPUSH SCH ×2 (21:29→21:45)
[2017-11-24] MEDS: Thiamine 100 MG Tab PO SCH (21:43)
[2017-11-25] MEDS: diphenhydrAMINE 50 MG/ML SDV IVPUSH SCH ×3 (00:29→09:11)
[2017-11-25] MEDS: Acetaminophen/oxyCODONE 325-5 MG Tab PO PRN (03:40)
[2017-11-25] MEDS: methylPREDNISolone Sodium Succinate 125 MG/2 ML SDV IVPUSH SCH (04:11)
[2017-11-25] MEDS: Pantoprazole 40 MG Vial IVPUSH SCH (09:11)
[2017-11-25] MEDS: Folic Acid/Vitamin B Complex With C Cap PO SCH (09:11)
--- NOTE | 2017-11-25 09:16 | PCM.DCSUM1 ---
Discharge Summary - Hospital Course Diagnosis: Stroke: No - Discharge Data Discharge Disposition: Home, Self-Care 01 Condition: Fair - Discharge Diagnosis/Problem(s) (1) Alcohol withdrawal SNOMED Code(s): 014365247 ICD Code: F10.239 - ALCOHOL DEPENDENCE WITH WITHDRAWAL, UNSPECIFIED Status : Acute Current Visit: Yes (2) Pyelonephritis SNOMED Code(s): 07744064 ICD Code: N12 - TUBULO-INTERSTITIAL NEPHRITIS, NOT SPCF ACUTE OR CHRONIC Status: Acute Current Visit: Yes (3) History of frequent urinary tract infections SNOMED Code(s): 8736837697459 ICD Code: Z87.440 - PERSONAL HISTORY OF URINARY (TRACT) INFECTIONS Status: Acute Current Visit: Yes (4) Alcohol abuse SNOMED Code(s): 33720538 ICD Code: F10.10 - ALCOHOL ABUSE, UNCOMPLICATED Status: Acute Current Visit: Yes (5) Epigastric abdominal tenderness SNOMED Code(s): 584224150 ICD Code: R10.816 - EPIGASTRIC ABDOMINAL TENDERNESS Status: Acute Current Visit: Yes (6) Methamphetamine abuse SNOMED Code(s): 792534665 ICD Code: F15.10 - OTHER STIMULANT ABUSE, UNCOMPLICATED Status: Acute Current Visit: Yes - Patient Instructions Diet: Usual Diet as Tolerated Activity: As Tolerated Driving: May Drive Today Showering/Bathing: May Shower - Discharge Plan Prescriptions/Med Rec: cefTRIAXone [Rocephin] 1 gm IM DAILY 10 Days #10 vial Folic Acid 1 mg PO BEDTIME #60 tab Pantoprazole Sodium [Protonix] 40 mg PO DAILY #60 tablet. Thiamine [Vitamin B-1] 100 mg PO BEDTIME #60 tablet Home Medications: Home Meds Thiamine [Vitamin B-1] 100 mg PO BEDTIME #60 tablet 11/24/17 [Rx] cefTRIAXone [Rocephin] 1 gm IM DAILY 10 Days #10 vial 11/24/17 [Rx] Folic Acid 1 mg PO BEDTIME #60 tab 11/25/17 [Rx] Pantoprazole Sodium [Protonix] 40 mg PO DAILY #60 tablet. 11/25/17 [Rx] Patient Handouts: Pyelonephritis, Adult, Alcohol Withdrawal, Ceftriaxone injection, Thiamine, Vitamin B1 tablets, Urinary Tract Infection, Adult Forms: ED Department Discharge Referrals: PCP,None [Primary Care Provider] - (follow-up with PCP in 1 week) - Patient Data Vitals - Most Recent: Last Vital Signs Temp 97.3 F 11/25/17 08:41 Pulse 72 11/25/17 08:41 Resp 18 11/25/17 08:41 BP 109/72 11/25/17 08:41 Pulse Ox 96 11/25/17 08:41 Weight - Most Recent: 163 lb I&O - Last 24 hours: Intake & Output 11/24/17 11/25/17 11/25/17 22:59 06:59 14:59 Intake Total 800 Output Total 1500 Balance -700 Lab Results - Last 24 hrs: Laboratory Results - last 24 hr 11/24/17 Range/Units 09:57 WBC 7.16 (4.0-11.0) K/uL RBC 3.84 L (4.30-5.90) M/uL Hgb 12.9 (12.0-16.0) g/dL Hct 37.9 (36.0-46.0) % MCV 98.7 H (80.0-98.0) fL MCH 33.6 H (27.0-32.0) pg MCHC 34.0 (31.0-37.0) g/dL RDW Std Deviation 41.9 (28.0-62.0) fl RDW Coeff of Vaibhav 12 (11.0-15.0) % Plt Count 149 L (150-400) K/uL MPV 9.20 (7.40-12.00) fL Add Manual Diff YES Neutrophils % (Manual) 60 (48.0-80.0) % Band Neutrophils % 5 % Lymphocytes % (Manual) 18 (16.0-40.0) % Monocytes % (Manual) 14 (0.0-15.0) % Eosinophils % (Manual) 2 (0.0-7.0) % Basophils % (Manual) 1 (0.0-1.5) % Absolute Seg Neuts 4.3 (1.4-5.7) Band Neutrophils # 0.4 Lymphocytes # (Manual) 1.3 (0.6-2.4) Monocytes # (Manual) 1.0 H (0.0-0.8) Eosinophils # (Manual) 0.1 (0.0-0.7) Basophils # (Manual) 0.1 (0.0-0.1) ALEKSEY Results - Last 24 hrs: Microbiology 11/23/17 02:13 Aerobic Blood Culture - Preliminary Blood NO GROWTH AFTER 2 DAYS Anaerobic Blood Culture - Preliminary NO GROWTH AFTER 2 DAYS 11/23/17 02:20 Aerobic Blood Culture - Preliminary Blood - Venous Anaerobic Blood Culture - Final 11/23/17 00:00 Urine Culture - Final Urine, Clean Catch Escherichia Coli Med Orders - Current: Current Medications Acetaminophen (Tylenol) 650 mg PO Q4H PRN PRN Reason: Pain/Fever Last Admin: 11/24/17 01:04 Dose: 650 mg Diphenhydramine HCl (Benadryl) 50 mg IVPUSH Q4H [facility] Last Admin: 11/25/17 09:11 Dose: 50 mg Ceftriaxone Sodium/Dextrose 1 (gm/ Premix) 50 mls @ 100 mls/hr IV Q24H [facility] Lorazepam (Ativan) 0 mg IVPUSH Q4H PRN; Protocol PRN Reason: agitation, anxiety Methylprednisolone Sodium Succinate (Solu-Medrol) 125 mg IVPUSH Q6H [facility] Last Admin: 11/25/17 04:11 Dose: 125 mg Multivit/Ca Carb/B Cmplx/FA/Prenat (Renal Caps Softgel) 1 cap PO DAILY [facility] Last Admin: 11/25/17 09:11 Dose: 1 cap Oxycodone/Acetaminophen (Percocet 325-5 Mg) 1 tab PO Q4H PRN PRN Reason: Pain Last Admin: 11/25/17 03:40 Dose: 1 tab Pantoprazole Sodium (Protonix Iv) 40 mg IVPUSH BID [facility] Last Admin: 11/25/17 09:11 Dose: 40 mg Thiamine HCl (Vitamin B-1) 100 mg PO BEDTIME [facility] Last Admin: 11/24/17 21:43 Dose: 100 mg Discontinued Medications Diphenhydramine HCl (Benadryl) 50 mg IVPUSH ONETIME ONE Stop: 11/24/17 13:20 Last Admin: 11/24/17 13:26 Dose: 50 mg Diphenhydramine HCl (Benadryl) Confirm Administered Dose 50 mg .ROUTE .STK-MED ONE Stop: 11/24/17 13:22 Last Admin: 11/24/17 13:27 Dose: Not Given Diphenhydramine HCl (Benadryl) 50 mg IVPUSH ONETIME ONE Stop: 11/24/17 16:10 Last Admin: 11/24/17 16:30 Dose: Not Given Diphenhydramine HCl (Benadryl) 50 mg IVPUSH ONETIME ONE Stop: 11/24/17 16:13 Last Admin: 11/24/17 16:41 Dose: 50 mg Enoxaparin Sodium (Lovenox) 40 mg SUBCUT Q24H [facility] Last Admin: 11/23/17 03:27 Dose: 40 mg Epinephrine HCl (Adrenalin) 1 mg IVPUSH NOW ONE Stop: 11/24/17 16:13 Epinephrine HCl (Adrenalin) 0.3 mg IM ONETIME ONE Stop: 11/24/17 17:16 Last Admin: 11/24/17 18:17 Dose: Not Given Famotidine (Pepcid) 20 mg IVPUSH ONETIME ONE Stop: 11/24/17 16:16 Last Admin: 11/24/17 16:36 Dose: 20 mg Sodium Chloride (Normal Saline) 1,000 mls @ 999 mls/hr IV STAT ONE Stop: 11/23/17 02:00 Last Admin: 11/23/17 01:09 Dose: 999 mls/hr Ertapenem 1 gm/ Sodium (Chloride) 50 mls @ 100 mls/hr IV ONETIME ONE Stop: 11/23/17 02:10 Last Admin: 11/23/17 02:16 Dose: 100 mls/hr Sodium Chloride (Normal Saline) 1,000 mls @ 999 mls/hr IV .Bolus ONE Stop: 11/23/17 03:03 Last Admin: 11/23/17 02:17 Dose: 999 mls/hr Sodium Chloride (Normal Saline) 1,000 mls @ 150 mls/hr IV ASDIRECTED [facility] Last Admin: 11/24/17 09:15 Dose: 150 mls/hr Magnesium Sulfate 2 gm/ Premix 50 mls @ 50 mls/hr IV ONETIME ONE Stop: 11/23/17 14:16 Last Admin: 11/23/17 14:47 Dose: 50 mls/hr Ertapenem 1 gm/ Sodium (Chloride) 50 mls @ 100 mls/hr IV Q24H [facility] Last Admin: 11/24/17 01:06 Dose: 100 mls/hr Ciprofloxacin/Dextrose 400 mg/ (Premix) 200 mls @ 200 mls/hr IV Q12H [facility] Last Admin: 11/24/17 10:16 Dose: 200 mls/hr Ceftriaxone Sodium 1,000 mg/ (Sodium Chloride) 50 mls @ 200 mls/hr IV Q24H [facility] Last Infusion: 11/24/17 19:59 Dose: 25 mls/hr Ketorolac Tromethamine (Toradol) 30 mg IVPUSH ONETIME ONE Stop: 11/23/17 01:01 Last Admin: 11/23/17 01:09 Dose: 30 mg Lorazepam (Ativan) 2 mg IVPUSH ONETIME ONE Stop: 11/24/17 16:54 Last Admin: 11/24/17 18:04 Dose: 2 mg Methylprednisolone Sodium Succinate (Solu-Medrol) 125 mg IVPUSH ONETIME ONE Stop: 11/24/17 13:10 Last Admin: 11/24/17 13:26 Dose: 125 mg Morphine Sulfate (Morphine) 2 mg IVPUSH ONETIME ONE Stop: 11/23/17 01:27 Last Admin: 11/23/17 01:52 Dose: Not Given
[2017-11-25] MEDS ORDERED: cefTRIAXone 1 GM in Premix Bag 1 BAG IV SCH (18:30)
== END 2017-11-25 10:00 | disposition home or self-care (01) ==
LOC: MW.ED 23:50 → MW.MS 11-23 01:53
PROVIDERS: ADMIT Internal Medicine; ATTEND Internal Medicine
DX: N12 Tubulo-interstitial nephritis, not specified as acute or chronic (principal); F10.239 Alcohol dependence with withdrawal, unspecified; Z79.2 Long term (current) use of antibiotics; Z79.899 Other long term (current) drug therapy; Z88.1 Allergy status to other antibiotic agents; Z88.2 Allergy status to sulfonamides; Z87.440 Personal history of urinary (tract) infections
CPT/HCPCS: 36415; 76775; 80048; 80053; 80305; 81001; 81025; 83605; 85025; 86677; 87040; 87086; 87088; 87186; 96361; 96365; 96366; 96372; 96375; 96376; 99285; A9270; C9113; G0378; J0171; J0696; J0744; J1200; J1335; J1650; J1885; J2060; J2930; J3475; J3490; J7040; J7050; 96374; J2270